=== PATIENT | female | born 1960 | race Two or more races ===

== ENCOUNTER 2020-02-25 13:27 | Emergency (ER) | payer OTHER ==
[~2020-02-25] VITALS: Ht 157.5 cm; Wt 72.6 kg
[2020-02-25] MEDS ORDERED: TRIAZOLAM0.25 MG PO (14:12)
[2020-02-25] MEDS ORDERED: PHENAZOPYRIDIN100 MG PO (14:12)
[2020-02-25] MEDS ORDERED: LANSOPRAZOLE30 MG PO (14:12)
[2020-02-25] MEDS ORDERED: SYNTHROID75 MCG PO (14:12)
[2020-02-25] MEDS ORDERED: CIPROFLOXACIN500 MG PO (14:12)
[2020-02-25] MEDS ORDERED: BUTALB-ACETAMI1 EAC2 PO (14:13)
[2020-02-25] MEDS ORDERED: CLONAZEPAM1 MG PO (14:13)
[2020-02-25] MEDS ORDERED: CLIMARA1 EAC1 TD (14:13)
[2020-02-25] MEDS ORDERED: OMEPRAZOLE40 MG PO (14:14)
[2020-02-25] MEDS ORDERED: GABAPENTIN100 M2 PO (14:14)
[2020-02-25] MEDS ORDERED: BUPROPION XL300 MG PO (14:14)
[2020-02-25] MEDS ORDERED: ORPHENADRINE C100 MG PO (19:31)
[2020-02-25] MEDS ORDERED: CIPRO500 MG PO (19:31)
[2020-02-25] MEDS ORDERED: KETO10TA2 PO (19:31)
[2020-02-25] MEDS ORDERED: INTESTINEX680 M1 PO (19:31)
== END 2020-02-25 20:26 | disposition home or self-care (01) ==
LOC: ER 13:27
DX: N39.0 Urinary tract infection, site not specified (principal); Z03.818 Encounter for observation for suspected exposure to other biological agents ruled out; R53.81 Other malaise